=== PATIENT | male | born 1970 | race African-American/Black ===

== ENCOUNTER 2019-02-08 04:10 | Inpatient (IN) | payer OTHER ==
[~2019-02-08] VITALS: Ht 172.7 cm; Wt 77.5 kg
[2019-02-08] MEDS ORDERED: MIRT30 PO (04:20)
[2019-02-08] MEDS ORDERED: BENZ1TAB10 PO (04:20)
[2019-02-08] MEDS ORDERED: HALO5TAB2 PO (04:20)
[2019-02-08] MEDS ORDERED: FLUO-191 PO (04:20)
[2019-02-08] MEDS ORDERED: LORazepam 2 MG/ML VIAL IM ONE (04:45)
[2019-02-08] MEDS ORDERED: HALOPERIDOL LACTATE 5 MG/ML VIAL IM ONE (04:45)
[2019-02-08 04:47] LABS: BASOPHILS % (AUTO) 2.4 % (0.0-2.0); HEMATOCRIT 44.5 % (41-53); HEMOGLOBIN 15.2 g/dL (13.5-17.5); LYMPHOCYTES # (AUTO) 1.1 K/uL (1.0-4.8); MEAN CORPUSCULAR HEMOGLOBIN 30.2 pg (26.0-34.0); MEAN CORPUSCULAR HGB CONC 34.1 G/dL (31.0-37.0); MEAN CORPUSCULAR VOLUME 89 fL (80-100); MONOCYTES # (AUTO) 0.4 K/uL (0.1-1.0); MONOCYTES % (AUTO) 8.6 % (2.0-9.0); NEUTROPHILS # (AUTO) 3.2 K/uL (1.8-7.7); PLATELET COUNT (AUTO) 244 K/uL (150-450); RED BLOOD CELL COUNT(AUTO) 5.02 MIL/uL (4.50-5.90)
[2019-02-08 04:54] LABS: ANION GAP 7 mmol/L (8-16); CALCIUM, TOTAL 9.5 mg/dL (8.8-10.5); CARBON DIOXIDE 30 mmol/L (22-29); CHLORIDE 103 mmol/L (98-107); CREATININE 1.32 mg/dL (0.60-1.30); GLOMERULAR FILTR. RATE CALC 58 mL/min (>60); GLUCOSE,RANDOM 91 mg/dL (70-110); POTASSIUM 4.4 mmol/L (3.5-5.1); SODIUM SERUM 140 mmol/L (136-145); UREA NITROGEN, BLOOD 12 mg/dL (7-18)
[2019-02-08 05:00] LABS: ALANINE AMINOTRANSFERASE 23 U/L (12-78); ALBUMIN 3.8 g/dL (3.4-5.0); ALKALINE PHOSPHATASE 53 U/L (46-116); ASPARTATE AMINOTRANSFERASE 19 U/L (15-37); BILIRUBIN,TOTAL 0.5 mg/dL (0.1-1.0); TOTAL PROTEIN, SERUM 7.1 g/dL (6.4-8.2)
[2019-02-08 06:39] VITALS: BP 148/81
[2019-02-08 07:38] VITALS: BP 141/91
[2019-02-08] MEDS ORDERED: ALBUTEROL SULFATE 2.5 MG/0.5 ML NEB SOLUTION NEB PRN (10:45)
[2019-02-08] MEDS ORDERED: HydrALAZINE HCL 25 MG TABLET PO PRN (10:45)
[2019-02-08] MEDS ORDERED: BISACODYL 10 MG RECTAL RECTAL SUPPOSITORY PR PRN (10:45)
[2019-02-08] MEDS ORDERED: ACETAMINOPHEN 325 MG TABLET PO PRN (10:45)
[2019-02-08] MEDS ORDERED: MAGNESIUM HYDROXIDE SUSPENSION 30 ML UDCUP PO PRN (10:45)
[2019-02-08] MEDS ORDERED: ONDANSETRON HCL 4 MG/2 ML VIAL IVP PRN (10:45)
[2019-02-08] MEDS ORDERED: IPRATROPIUM BROMIDE 0.5 MG/2.5 ML NEB SOLUTION NEB PRN (10:45)
[2019-02-08] MEDS ORDERED: DOCUSATE SODIUM 100 MG CAPSULE PO PRN (10:45)
[2019-02-08] MEDS: SODIUM CHLORIDE 0.9% 1,000 ML IV SCH (11:42)
[2019-02-08 12:03] VITALS: BP 141/94
[2019-02-08] MEDS ORDERED: DiphenhydrAMINE HCL 25 MG CAPSULE PO PRN (14:00)
[2019-02-08] MEDS ORDERED: HydrOXYzine PAMOATE 50 MG CAPSULE PO PRN (14:00)
[2019-02-08 15:18] VITALS: BP 130/76
[2019-02-08] MEDS: BENZTROPINE MESYLATE 1 MG TABLET PO SCH ×2 (16:00→16:35)
[2019-02-08] MEDS: HALOPERIDOL 10 MG TABLET PO SCH ×2 (16:34→20:39)
[2019-02-08 20:32] VITALS: BP 125/63
[2019-02-08] MEDS: FAMOTIDINE 20 MG TABLET PO SCH (20:39)
[2019-02-08] MEDS: MIRTAZAPINE 30 MG TABLET PO SCH (20:39)
[2019-02-09 00:41] VITALS: BP 126/76
[2019-02-09] MEDS: SODIUM CHLORIDE 0.9% 1,000 ML IV SCH ×2 (01:11→14:37)
[2019-02-09 07:26] VITALS: BP 126/72
[2019-02-09 07:38] LABS: BASOPHILS % (AUTO) 0.9 % (0.0-2.0); EOSINOPHILS % (AUTO) 2.3 % (1.0-6.0); HEMATOCRIT 42.7 % (41-53); HEMOGLOBIN 14.7 g/dL (13.5-17.5); LYMPHOCYTES # (AUTO) 1.1 K/uL (1.0-4.8); LYMPHOCYTES % (AUTO) 30.2 % (22.0-44.0); MEAN CORPUSCULAR HEMOGLOBIN 30.7 pg (26.0-34.0); MEAN CORPUSCULAR HGB CONC 34.4 G/dL (31.0-37.0); MEAN CORPUSCULAR VOLUME 89 fL (80-100); MONOCYTES # (AUTO) 0.4 K/uL (0.1-1.0); MONOCYTES % (AUTO) 9.6 % (2.0-9.0); NEUTROPHILS # (AUTO) 2.1 K/uL (1.8-7.7); PLATELET COUNT (AUTO) 223 K/uL (150-450); RED BLOOD CELL COUNT(AUTO) 4.78 MIL/uL (4.50-5.90); RED CELL DISTRIBUTION WIDTH 14.2 % (11.5-14.5)
[2019-02-09 07:43] LABS: ANION GAP 5 mmol/L (8-16); CALCIUM, TOTAL 8.9 mg/dL (8.8-10.5); CARBON DIOXIDE 30 mmol/L (22-29); CHLORIDE 106 mmol/L (98-107); CREATININE 1.29 mg/dL (0.60-1.30); GLOMERULAR FILTR. RATE CALC > 60 mL/min (>60); GLUCOSE,RANDOM 107 mg/dL (70-110); POTASSIUM 4.5 mmol/L (3.5-5.1); SODIUM SERUM 141 mmol/L (136-145); UREA NITROGEN, BLOOD 14 mg/dL (7-18)
[2019-02-09] MEDS: BENZTROPINE MESYLATE 1 MG TABLET PO SCH ×2 (08:57→20:06)
[2019-02-09] MEDS: FAMOTIDINE 20 MG TABLET PO SCH ×2 (08:58→20:06)
[2019-02-09] MEDS: HALOPERIDOL 10 MG TABLET PO SCH ×2 (08:58→20:06)
[2019-02-09 12:44] VITALS: BP 130/75
[2019-02-09 15:45] VITALS: BP 122/78
[2019-02-09 19:12] VITALS: BP 129/75
[2019-02-09] MEDS: MIRTAZAPINE 30 MG TABLET PO SCH (20:06)
[2019-02-09 23:08] VITALS: BP 116/68
[2019-02-10] MEDS: SODIUM CHLORIDE 0.9% 1,000 ML IV SCH (04:27)
[2019-02-10 06:05] VITALS: BP 130/75
[2019-02-10 07:18] VITALS: BP 135/78
[2019-02-10] MEDS: FAMOTIDINE 20 MG TABLET PO SCH ×2 (08:11→20:51)
[2019-02-10] MEDS: HALOPERIDOL 10 MG TABLET PO SCH ×2 (08:11→20:51)
[2019-02-10] MEDS: BENZTROPINE MESYLATE 1 MG TABLET PO SCH ×2 (08:11→20:51)
[2019-02-10 11:12] VITALS: BP 120/70
[2019-02-10 15:04] VITALS: BP 126/84
[2019-02-10 20:22] VITALS: BP 128/77
[2019-02-10] MEDS: MIRTAZAPINE 30 MG TABLET PO SCH (20:51)
[2019-02-11 00:28] VITALS: BP 112/67
[2019-02-11 05:07] VITALS: BP 126/68
[2019-02-11 07:34] VITALS: BP 133/72
[2019-02-11] MEDS: HALOPERIDOL 10 MG TABLET PO SCH (08:28)
[2019-02-11] MEDS: BENZTROPINE MESYLATE 1 MG TABLET PO SCH (08:28)
[2019-02-11] MEDS: FAMOTIDINE 20 MG TABLET PO SCH (08:28)
[2019-02-11 11:36] VITALS: BP 127/83
== END 2019-02-11 18:20 | DRG 885 ==
LOC: EMS 04:10 → 6S 06:06
PROVIDERS: ADMIT Internal Medicine
DX: F20.0 Paranoid schizophrenia (principal); R45.851 Suicidal ideations; I10 Essential (primary) hypertension; R73.03 Prediabetes; F14.90 Cocaine use, unspecified, uncomplicated; F12.90 Cannabis use, unspecified, uncomplicated; F15.90 Other stimulant use, unspecified, uncomplicated; Z78.1 Physical restraint status; Z91.012 Allergy to eggs
CPT/HCPCS: 70450; 72100; 96372; G0480; J1630; J2060; J7030